=== PATIENT | male | born 1955 | race Two or more races ===

== ENCOUNTER 2019-02-04 06:05 | Inpatient (IN) | payer OTHER ==
[~2019-02-04] VITALS: Ht 177.8 cm; Wt 99.8 kg
[2019-02-04] MEDS ORDERED: ASPIRIN 600 MG/SUPP.RECT RC ONE (06:06)
[2019-02-04] MEDS ORDERED: oxyCODONE IR immediate release 5 MG PO ONE (06:06)
[2019-02-04] MEDS ORDERED: KETOROLAC TROMETHAMINE INJ 30 MG/ML VIAL IV ONE (06:06)
[2019-02-04] MEDS ORDERED: CELECOXIB 100 MG CAPSULE ONE (06:40)
[2019-02-04] MEDS ORDERED: METOCLOPRAMIDE HCL 10 MG/2 ML VIAL ONE (06:40)
[2019-02-04] MEDS ORDERED: oxyCODONE HCL SR 10MG TAB.SR.12H PO ONE (06:40)
[2019-02-04] MEDS ORDERED: ACETAMINOPHEN ES 500 MG TABLET ONE (06:40)
[2019-02-04] MEDS ORDERED: FENTANYL PF 100MCG/2ML AMPUL ONE (09:00)
[2019-02-04] MEDS ORDERED: MIDAZOLAM HCL 2 MG/2ML VIAL ONE (09:00)
[2019-02-04] MEDS ORDERED: KETOROLAC TROMETHAMINE INJ 30 MG/ML VIAL ONE ×2 (09:15→13:27)
[2019-02-04] MEDS ORDERED: BACITRACIN 50000 UNITS/VIAL ONE (09:16)
[2019-02-04] MEDS ORDERED: MORPHINE SULFATE INJ 4 MG/ML DISP.SYRIN ONE (09:16)
[2019-02-04] MEDS ORDERED: BUPIVACAINE MPF 0.5% W/EPI INJ 30 ML VIAL ONE (09:16)
[2019-02-04] MEDS ORDERED: SODIUM CHLORIDE IRRIG IR PRN (09:30)
[2019-02-04] MEDS ORDERED: TRANEXAMIC ACID IR PRN (09:30)
[2019-02-04] MEDS ORDERED: SEVOFLURANE 250 ML BOTTLE IH ONE (10:29)
[2019-02-04] MEDS ORDERED: oxyCODONE IR immediate release 5 MG ONE (13:23)
[2019-02-04] MEDS ORDERED: HYDROMORPHONE 1 MG/1 ML DISP.SYRIN IV PRN (13:30)
[2019-02-04] MEDS ORDERED: ACETAMINOPHEN 325 MG TABLET PO PRN (13:30)
[2019-02-04] MEDS ORDERED: HYDROCODONE/APAP 5/325MG 1 EACH TABLET PO PRN (14:00)
[2019-02-04] MEDS ORDERED: ONDANSETRON HCL/PF 4 MG/2 ML VIAL IVP PRN (14:00)
[2019-02-04] MEDS ORDERED: DOCUSATE SODIUM 100 MG CAPSULE PO PRN (14:00)
[2019-02-04] MEDS ORDERED: MAGNESIUM HYDROXIDE 30 ML UDC PO PRN ×2 (14:00→15:30)
[2019-02-04] MEDS ORDERED: KETOROLAC TROMETHAMINE INJ 30 MG/ML VIAL IV PRN (14:00)
--- NOTE | 2019-02-04 14:00 | NUR ---
MS RN ADMITTING NOTE RECEIVED PATIENT FROM OR IN A BED, ADMITTED TO [facility] FLOOR POST OPERATIVELY OF RIGHT SHOULDER. PATIENT IS STABLE, VITAL SIGNS STABLE. ALERT ORIENTED X4. ON 2L O2 VIA NC, TOLERATING WELL. IN NO APPARENT DISTRESS OR DISCOMFORT AT THIS TIME. RESPIRATIONS EVEN AND UNLABORED. DENIES PAIN AND SOB. PATIENT IS ABLE TO COMMUNICATE NEEDS, [place]SHALL[place] SPEAKING, MINIMALLY UNDERSTANDS MALAYSIAN, FAMILY AT BEDSIDE TO TRANSLATE. HISTORY OBTAINED FROM PATIENT AND FAMILY. PHYSICAL ASSESSMENT COMPLETE. PATIENT IS WITH RIGHT SHOULDER SURGICAL INCISION COVERED WITH DRESSING, CLEAN AND INTACT, UNABLE TO ASSESS INCISION, SURROUNDING TISSUE HAS NO INDICATION OF INFECTION OR INFLAMMATION. ARM IMMOBILIZER IN PLACE. PATIENT WITH LEFT FA 18G IVC SL, PATENT AND INTACT, BELONGINGS CHECKED AND RECORDED IN THE CHART. PATIENT WAS MADE COMFORTABLE IN BED. SAFETY MEASURES APPLIED, BED IN LOW LOCKED POSITION, SIDE RAILS UP X2, CALL LIGHT WITHIN EASY REACH, ORIENTED TO THE USE. WILL CARRY OUT POST-OP ORDERS AND CONTINUE TO MONITOR. HOSPITALIST ASHLEY FRANCO NP NOTIFIED.
[2019-02-04] MEDS ORDERED: HYDROCODONE/APAP 5/325MG 1 EACH TABLET PO SCH (14:10)
[2019-02-04] MEDS ORDERED: KETOROLAC TROMETHAMINE INJ 30 MG/ML VIAL IV SCH (14:11)
[2019-02-04 15:00] VITALS: BP 118/73
[2019-02-04] MEDS ORDERED: MAG HYDROX/AL HYDROX/SIMETH 30 ML UDC PO PRN (15:30)
[2019-02-04] MEDS ORDERED: ZOLPIDEM TARTRATE 5 MG TABLET PO PRN ×2 (15:30→22:00)
[2019-02-04 16:00] VITALS: BP 111/54
[2019-02-04] MEDS: IV D5/0.45 NACL 1,000 ML IV PRN (16:05)
[2019-02-04] MEDS: CELECOXIB 100 MG CAPSULE PO SCH (16:33)
[2019-02-04] MEDS: FERROUS SULFATE (325 MG) 325 MG/TAB TABLET PO SCH (16:33)
[2019-02-04] MEDS: ANCEF 1 GM/50 ML D5W IV SCH ×2 (16:33)
[2019-02-04] MEDS: HYDROCODONE/APAP 5/325MG 1 EACH TABLET PO SCH ×2 (17:21→21:59)
--- NOTE | 2019-02-04 18:54 | NUR ---
MS RN CLOSING NOTE PATIENT IN BED. ALERT ORIENTED X4. ON 2L O2 VIA NC, TOLERATING WELL. IN NO APPARENT DISTRESS OR DISCOMFORT AT THIS TIME. RESPIRATIONS EVEN AND UNLABORED. DENIES PAIN AND SOB. PATIENT IS ABLE TO COMMUNICATE NEEDS, FAMILY AT BEDSIDE TO ASSIST. RIGHT SHOULDER DRESSING CLEAN AND INTACT. PATIENT IS ABLE TO WIGGLE FINGERS, GOOD CIRCULATION PRESENT IN OPERATED ARM. LEFT FA 18G IVC WITH FLUIDS RUNNING AT 75ML/HR. INCENTIVE SPIROMETER AT BEDSIDE, ENCOURAGED USE EVERY HOUR. PATIENT KEPT CLEAN AND COMFORTABLE. ALL NEEDS ATTENDED, ORDERS RENDERED. SAFETY MEASURES IN PLACE, BED IN LOW LOCKED POSITION, SIDE RAILS UP X2, CALL LIGHT WITHIN EASY REACH. WILL ENDORSE TO PM NURSE FOR MATT.
--- NOTE | 2019-02-04 19:30 | NUR ---
MS RN OPENING NOTES: RECEIVED PATIENT RESTING COMFORTABLY IN BED, AWAKE, ALERT AND ORIENTED X4.NO COMPLAIN OF PAIN. AT THE BEDSIDE. WITH ICE PACK ON THE RIGHT SHOULDER INCISION, REFILLED WITH MORE ICE. NO BLEEDING NOTED. POST OP INCISION IS CLEAN,DRY AND INTACT. NO N/V NOTED. ENCOURAGED TO USE INCENTIVE SPIROMETER Q HOUR WHILE AWAKE,VERBALIZED UNDERSTANDING. PROVIDED A URINAL,INSTRUCTED TO CALL FOR ASSISTANCE IF NEEDED.WITH RIGHT SHOULDER SLING, INSTRUCTED TO KEEP IT ON AT ALL TIMES, VERBALIZED UNDERSTANDING. BARBADIAN SPEAKING ONLY BUT ABLE TO MAKE NEEDS KNOWN.
[2019-02-04] MEDS: ONDANSETRON HCL/PF 4 MG/2 ML VIAL IVP SCH (19:58)
[2019-02-04] MEDS: KETOROLAC TROMETHAMINE INJ 30 MG/ML VIAL IV SCH (19:58)
[2019-02-04 20:00] VITALS: BP 101/60
[2019-02-04] MEDS ORDERED: BISACODYL SUPP (10 MG) 10 MG/SUPP.RECT SUPP.RECT RC PRN (22:00)
--- NOTE | 2019-02-04 23:22 | NUR ---
RN NOTES: PATIENT VOIDED IN THE URINAL, STATES" THERE'S STILL BLOOD IN THE URINE". NO COMPLAIN OF PAIN AT THIS TIME.
[2019-02-05] MEDS: ANCEF 1 GM/50 ML D5W IV SCH ×2 (00:20)
[2019-02-05] MEDS: HYDROCODONE/APAP 5/325MG 1 EACH TABLET PO SCH ×4 (02:19→14:37)
[2019-02-05] MEDS: ONDANSETRON HCL/PF 4 MG/2 ML VIAL IVP SCH ×3 (02:20→14:38)
[2019-02-05] MEDS: KETOROLAC TROMETHAMINE INJ 30 MG/ML VIAL IV SCH ×3 (02:20→14:38)
[2019-02-05] MEDS: IV D5/0.45 NACL 1,000 ML IV PRN (07:02)
[2019-02-05 07:12] LABS: BASOPHILS % (AUTO) 0.3 % (0.0-2.0); EOSINOPHILS % (AUTO) 0.6 % (0.0-6.0); HEMATOCRIT 34 % (39-51); HEMOGLOBIN 11.8 g/dL (13.5-17.5); LYMPHOCYTES # (AUTO) 1.8 /CMM (0.8-4.8); LYMPHOCYTES % (AUTO) 13.3 % (20.0-44.0); MEAN CORPUSCULAR HGB CONC 35 g/dl (31.0-36.0); MEAN CORPUSCULAR VOLUME 93 fL (80-96); MONOCYTES # (AUTO) 0.9 /CMM (0.1-1.30); MONOCYTES % (AUTO) 6.5 % (2.0-12.0); NEUTROPHILS # (AUTO) 10.7 /CMM (1.8-8.9); NEUTROPHILS % (AUTO) 79.3 % (43.0-81.0); PLATELET COUNT (AUTO) 152 /CMM (150-450); RED BLOOD CELL COUNT(AUTO) 3.67 MIL/uL (4.5-6.0); WHITE BLOOD COUNT (AUTO) 13.4 K/uL (4.3-11.0)
[2019-02-05 07:18] LABS: CALCIUM, SERUM 7.9 mg/dL (8.5-10.1); MAGNESIUM 2.1 mg/dL (1.8-2.4); PHOSPHORUS 3.5 mg/dL (2.5-4.9); POTASSIUM 4.3 mmol/L (3.5-5.1)
--- NOTE | 2019-02-05 07:25 | NUR ---
MS RN CLOSING NOTES: PATIENT IS RESTING COMFORTABLY IN BED, WITH VERY MINIMAL PAIN,BEARABLE. PATIENT VOIDED. PATENT ABLE TO MOVE HIS RIGHT FINGERS WITH GOOD SENSATIONS, WITH MINIMAL NUMBNESS, NO TINGLING SENSATIONS, GOOD CAPILLARY REFILLS, WARM TO TOUCH, COLOR IS WNL. RIGHT ARM IMMOBILIZER ON AT ALL TIMES. CALL LIGHT WITHIN REACH. NO N/V NOTED. THIS MORNING URINE HAS LESS BLOOD,PATIENT AWARE.
[2019-02-05 08:00] VITALS: BP 97/65
[2019-02-05] MEDS: FERROUS SULFATE (325 MG) 325 MG/TAB TABLET PO SCH ×2 (08:33→12:35)
[2019-02-05] MEDS: CELECOXIB 100 MG CAPSULE PO SCH (08:34)
[2019-02-05] MEDS ORDERED: HYDR-3972 PO (08:36)
[2019-02-05] MEDS ORDERED: ROSU20TA2 PO (08:36)
[2019-02-05] MEDS ORDERED: ASPI-1169 PO (08:36)
[2019-02-05] MEDS ORDERED: ASPIRIN EC 325 MG TABLET.DR PO SCH (09:00)
== END 2019-02-05 15:36 | disposition home or self-care (01) | DRG 483 ==
LOC: DS 06:05 → MED 13:57
PROVIDERS: ADMIT Nurse Practitioner Acute Care; ATTEND Orthopaedic Surgery
PROC: 0RRJ00Z Replacement of Right Shoulder Joint with Reverse Ball and Socket Synthetic Substitute, Open Approach (ICD-10-PCS; principal; 2019-02-04)
DX: M75.101 Unspecified rotator cuff tear or rupture of right shoulder, not specified as traumatic (principal)
CPT/HCPCS: 36415; 73020; 80048-TC; 80061-TC; 83735-TC; 84100-TC; 85025-TC; 86850-TC; 86921-TC; 87081-TC; 88305-TC; 88311-TC; A4217; A6402; G0378; J0690; J1100; J1170; J1885; J2250; J2270; J2405; J2704; J2710; J2765; J3010; J3490; J7060